=== PATIENT | male | born 1990 ===

== ENCOUNTER 2022-08-16 10:46 | Outpatient (CLI) | payer OTHER | END 2022-08-16 10:50 | disposition home or self-care (01) | LOC: SONOGRAMA 10:46 | PROVIDERS: ATTEND Pathology Anatomic Pathology | DX: E04.1 Nontoxic single thyroid nodule (principal) ==

== ENCOUNTER 2023-01-04 13:32 | Outpatient (CLI) | payer OTHER | END 2023-01-04 13:37 | disposition home or self-care (01) | LOC: LAB 13:32 | PROVIDERS: ATTEND Obstetrics & Gynecology | DX: Z20.818 Contact with and (suspected) exposure to other bacterial communicable diseases (principal); Z20.828 Contact with and (suspected) exposure to other viral communicable diseases ==